=== PATIENT | female | born 1990 | race Hispanic/Latino ===

== ENCOUNTER 2018-02-15 23:02 | Emergency (ER) | payer OTHER ==
[2018-02-16 00:20] VITALS: BP 127/84; PULSE 70; RESP 16; TEMP 99; O2SAT 99
[2018-02-16] MEDS ORDERED: Naproxen 500 MG TAB PO STA (00:44)
[2018-02-16] MEDS ORDERED: Lidocaine 1% Inj (20ml) IJ ONE (00:44)
--- NOTE | 2018-02-16 01:43 | ED PDOC ---
HPI: Skin/Bite Injury Time Seen by Provider: 02/16/18 00:36 Chief Complaint (Nursing): Abnormal Skin Integrity Chief Complaint (Provider): Abnormal Skin Integrity History Per: Patient History/Exam Limitations: no limitations Onset/Duration Of Symptoms: Hrs (x2) Additional Complaint(s): Patient is a 27 y/o female who presents to the ED for evaluation of a lower lip injury that she sustained prior to arrival. Patient reports that she tripped and fell sustaining the injury around 22:30. 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 Patient reports localized pain but denies LOC, headache, dizziness, extremity pain, neck pain, visual changes, dental pain, numbness/weakness, or any other complaints. PMD: Tiki Guerra Past Medical History Reviewed: Historical Data, Nursing Documentation, Vital Signs Vital Signs: Last Vital Signs Temp 99.0 F 02/16/18 00:17 Pulse 70 02/16/18 00:17 Resp 16 02/16/18 00:17 BP 127/84 02/16/18 00:17 Pulse Ox 99 02/16/18 00:17 - Medical History PMH: No Chronic Diseases - Surgical History Surgical History: No Surg Hx - Family History Family History: States: Unknown Family Hx - Home Medications Home Medications: Ambulatory Orders Medication Instructions Recorded RX: Naproxen 500 mg PO BID PRN #20 tab 02/16/18 - Allergies Allergies/Adverse Reactions: Allergies Allergy/AdvReac Type Severity Reaction Status Date / Time carrot Allergy ITCHING Verified 02/16/18 00:21 Review of Systems ROS Statement: Except As Marked, All Systems Reviewed And Found Negative Eyes: Negative for: Vision Change ENT: Positive for: Other (Lip injury) Musculoskeletal: Negative for: Neck Pain, Arm Pain, Leg Pain Neurological: Negative for: Headache, Dizziness Physical Exam - Reviewed Nursing Documentation Reviewed: Yes Vital Signs Reviewed: Yes - Physical Exam Comments: GENERAL APPEARANCE: Patient is awake, alert, resting comfortably in no acute distress. SKIN: Warm, dry; (-) cyanosis. HEAD: (-) scalp swelling or tenderness, with no palpable bony defect. EYES: (-) conjunctival pallor, (-) scleral icterus, (-) nystagmus. (-) periorbital tenderness, edema, erythema, ecchymosis ENMT: Lower Lip: (+) edema, (+) ecchymosis to mid lower lip; (+)1cm stellate laceration to interior aspect of lower lip; (+) active bleeding. Dentition: (+) intact, (-) tenderness. Full ROM of mandible without pain. (-) nasal bone tenderness NECK: Supple, FROM (-) paracervical tenderness, (-) vertebral tenderness, (-) lymphadenopathy. CHEST AND RESPIRATORY: (-) rales, (-) rhonchi, (-) wheezes; breath sounds equal bilaterally. Respirations even and nonlabored. HEART AND CARDIOVASCULAR: (-) irregularity ABDOMEN AND GI: Soft; (-) tenderness. BACK: (-) tenderness. EXTREMITIES: (-) deformity, (-) tenderness, (-) edema, (-) ecchymosis, (-) limit ation of motion, distal pulses 2+. NEURO AND PSYCH: Mental status as above. 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 EOMI and painless. (-) facial asymmetry. Gait: steady. Speech: clear. - ECG O2 Sat by Pulse Oximetry: 99 (RA) Pulse Ox Interpretation: Normal Medical Decision Making Medical Decision Making: Time: 00:44 Impression: Lip laceration s/p fall Initial Plan: Lidocaine INJ for laceration repair Naproxen PO 0130 Laceration repair performed by Quintin SMITH. See procedure note for wound clos ure details. Patient tolerated procedure well. Educated on wound care. Salt water gargles encouraged. 0150 On re-evaluation, patient reports improvement of symptoms. On exam, patient remains AAOx3, in no acute distress. Lungs clear to auscultation, cardiac RRR, repeat neuro exam shows no focal findings. VSS, stable for discharge. Lab/Diagnostic results d/w the patient in great detail. Diagnosis of lip laceration s/p fall d/w the patient. Based on history, exam and diagnostic results, plan will be for outpatient follow up. Patient instructed to follow-up with pmd / referral provided / the clinic in 1- 2 days without fail. Advised to take medication as prescribed. Return to the emergency room at any time for any new or worsening symptoms. Patient states she fully agrees with and understands discharge instructions. States that she agrees with the plan and disposition. Verbalized and repeated discharge instructions and plan. I have given the patient opportunity to ask any additional questions. Scribe Attestation: Documented by Sheldon Viera acting as a scribe for Charmaine Ribeiro PA-C. Provider Scribe Attestation: All medical record entries made by the Scribe were at my direction and personally dictated by me. I have reviewed the chart and agree that the record accurately reflects my personal performance of the history, physical exam, medical decision making, and the department course for this patient. I have also personally directed, reviewed, and agree with the discharge instructions and disposition. Disposition - Clinical Impression Clinical Impression: Laceration of lip, Fall - Patient ED Disposition Is Patient to be Admitted: No Counseled Patient/Family Regarding: Studies Performed, Diagnosis, Need For Followup, Rx Given - Disposition Referrals: iTki Guerra APN [Advanced Practice Nurse] - Disposition: Routine/Home Disposition Time: 01:50 Condition: STABLE Additional Instructions: The emergency medical care you received today was directed towards the acute presenting symptoms. If you were prescribed any medication, please fill it and give as directed. It may take several days for your symptoms to resolve. Return to the Emergency Department at any time if symptoms worsen, do not improve, or if any other problems arise. Please contact your doctor in 2 days for re-evaluation and follow up / or call one of the physicians/clinics you have been referred to that are listed on the Patient Visit Information form that is included in your discharge packet. Bring any paperwork you were given at discharge with you along with any medications to your follow up visit. Our treatment cannot replace ongoing medical care by a primary care provider (PCP) outside of the emergency department. Prescriptions: RX: Naproxen 500 mg PO BID PRN #20 tab PRN Reason: PAIN/SWELLING Instructions: Wound Care Forms: [employer] (Mexican) Print Language: PUERT[place] RICAN - POA Present On Arrival: Falls Or Trauma Procedure: Wound Repair - Time Performed Time Performed: 01:30 - Time Out Time Out: Side verified, Site verified, Patient ID confirmed - Procedure Procedure: Wound Repair: Lip Laceration - Consent Obtained Consent obtained: Verbal - Performed by Performed by: Mid-level Provider (Quintin SMITH) - Indications Indication(s):: Laceration - Location Location:: Lip Shape:: Stellate Dimensions Length cm: 1cm Depth:: Epidermis - Anesthetic Technique Anesthetic Technique: Topical Local/Regional Anesthetic:: Lidocaine 1% - Wound Examination Wound Examination:: Edema, Ecchymosis - Debris Debris:: None - Irrigated Irrigated with ml of normal saline: 50 - Complexity Complexity:: Simple (one layer) - Wound repair method Sutures:: # (2), Size (5-0), Type (monocryl) - Complications Complications: None - Patient tolerated procedure Patient Tolerated Procedure:: Well
[2018-02-16] MEDS ORDERED: Naproxen 500 MG TAB PO ONE (01:52)
[2018-02-16] MEDS ORDERED: Lidocaine 1% Inj (20ml) ONE (01:52)
== END 2018-02-16 01:59 | disposition home or self-care (01) ==
LOC: H.ER 23:02
DX: S01.511A Laceration without foreign body of lip, initial encounter (principal); W01.0XXA Fall on same level from slipping, tripping and stumbling without subsequent striking against object, initial encounter